=== PATIENT | male | born 1970 | race African-American/Black ===

== ENCOUNTER 2019-09-14 01:55 | Inpatient (IN) | payer OTHER, SELFPAY ==
[~2019-09-14] VITALS: Ht 182.9 cm; Wt 90.7 kg
[2019-09-14 01:55] VITALS: BP 149/93
--- NOTE | 2019-09-14 01:56 | NUR ---
PT FLOR BLS. TAKEN TO BED 6
--- NOTE | 2019-09-14 02:05 | NUR ---
49 Y/O MALE BIB [employer] [employer] C/O SI . PT WAS FOUND WANDERING SIDE OF ROAD PT STATES THE VOICES TOLD HIM TO HURT HIMSELF. PT STATES HE WANTED TO JUMP IN FRONT OF THE [place]. PT STATES HE HAD ALCOHOL AND METH TODAY BUT UNABLE TO OBTAIN HOW MUCH AND WHEN. PT HAS VISUAL AND VOCAL HALLUCINATIONS. PT STATES HE HAS NOT BEEN TAKING HIS MEDICATIONS FOR THE PAST 3 -4 DAYS. PT IS COOPERATIVE AND ABLE TO FOLLOW ALL COMMANDS. PT BREATHING EVEN AND UNLABORED. VSS. PT RESTING IN BED , LOCKED AND IN LOWEST POSITION, HOB ELEVATED , SIDE RAIL X 2 FOR PT SAFET, SI PRECAUTIONS IN PLACE FOR PT SAFETY. PMH: SCHIZOPHRENIA, DEPRESSION, ANXIETY RX: RISPERDONE AX: MOTRIN
[2019-09-14 02:41] LABS: BASOPHILS % (AUTO) 0.9 % (0.0-2.0); EOSINOPHILS # (AUTO) 0.2 K/uL (0-0.4); EOSINOPHILS % (AUTO) 4.5 % (0.0-4.0); HEMATOCRIT 41.1 % (36-52); HEMOGLOBIN 13.8 g/dL (12.0-18.0); LYMPHOCYTES # (AUTO) 2.5 K/uL (2.0-11.5); LYMPHOCYTES % (AUTO) 50.5 % (20.5-51.1); MEAN CORPUSCULAR HEMOGLOBIN 32 pg (27-31); MEAN CORPUSCULAR HGB CONC 34 g/dL (33-37); MEAN CORPUSCULAR VOLUME 95.3 fL (80-94); MONOCYTES # (AUTO) 0.3 K/uL (0.8-1.0); MONOCYTES % (AUTO) 6.5 % (1.7-9.3); NEUTROPHILS # (AUTO) 1.8 K/uL (1.8-7.7); NEUTROPHILS % (AUTO) 37.6 % (42.2-75.2); PLATELET COUNT (AUTO) 204 K/uL (140-450); RED BLOOD CELL COUNT(AUTO) 4.31 MIL/uL (4.20-6.10); WHITE BLOOD COUNT (AUTO) 4.9 K/uL (4.8-10.8)
[2019-09-14 03:00] LABS: ALBUMIN 3.6 g/dL (3.4-5.0); ANION GAP 16.6 (8-16); ASPARTATE AMINOTRANSFERASE 58 U/L (15-37); CHLORIDE 103 mmol/L (98-107); CREATININE 1.1 mg/dL (0.6-1.3); GFR ARICAN-AMERICAN 92 mL/min (>90); GLUCOSE 113 mg/dL (74-106); POTASSIUM 3.6 mmol/L (3.5-5.1); SODIUM SERUM 141 mmol/L (136-145); TOTAL BILIRUBIN 0.2 mg/dL (0.0-1.0); UREA NITROGEN, BLOOD 9 mg/dL (7-18)
--- NOTE | 2019-09-14 03:00 | NUR ---
PT SLEEPING IN BED , LOCKED AND IN LOWEST POSITION, HOB ELEVATED , SIDE RAIL X2 AND SI PRECAUTIONS IN PLACE FOR PT SAFETY.
[2019-09-14 03:01] LABS: ACETAMINOPHEN < 0.5 ug/ml (10-30); SALICYLATE < 2.8 mg/dL (2.8-20.0)
[2019-09-14 03:17] LABS: APPEARANCE,URINE CLEAR (CLEAR); BILIRUBIN,URINE NEGATIVE (NEGATIVE); BLOOD, URINE NEGATIVE (NEGATIVE); COLOR,URINE YELLOW (YELLOW); LEUKOCYTE ESTERASE ,URINE NEGATIVE (NEGATIVE); NITRITE, URINE NEGATIVE (NEGATIVE); PH,URINE 5.5 (5.0-9.0); UGLUCOSE NEGATIVE (NEGATIVE)
--- NOTE | 2019-09-14 03:23 | NUR ---
PT PROVIDED BLANKET FOR COMFORT.
[2019-09-14 03:28] LABS: BARBITURATE, URINE NEGATIVE ng/ml (NEG <=200); BENZODIAZEPINE, URINE NEGATIVE ng/mL (NEG <=200); CANNABINOID, URINE NEGATIVE ng/mL (NEG <=50); COCAINE, URINE NEGATIVE ng/mL (NEG <=300); OPIATE, URINE NEGATIVE ng/mL (NEG <=2000); PHENCYCLIDINE SCREEN,URINE NEGATIVE ng/mL (NEG <=25)
--- NOTE | 2019-09-14 04:25 | NUR ---
pt sleeping in bed , bed locked and in lowest position, hob elevated , side rails x [address] for pt safety.
--- NOTE | 2019-09-14 04:42 | NUR ---
[facility] awar of patient. Will assist with placement if and when needed and requested
--- NOTE | 2019-09-14 05:08 | NUR ---
BLOOD ALCOHOL REDRAWN AND TAKEN TO LAB.
--- NOTE | 2019-09-14 06:15 | NUR ---
pt sleeping in bed , locked and in lowest position, hob elevated , side rails x [address] for pt safety. Pt arousable by verbal stimulation.
--- NOTE | 2019-09-14 07:12 | NUR ---
REPORT GIVEN TO TIA AGUSTIN FOR CONTINUATION OF CARE.
--- NOTE | 2019-09-14 07:15 | NUR ---
RECEIVED REPORT FROM TIA HATCH , PT SLEEPING IN BED SIDE RAILS UP X1 AND LOCK.
--- NOTE | 2019-09-14 08:38 | NUR ---
pt comfortable in bed eating breakfast with no complaint . side rails up x1 and lock.
--- NOTE | 2019-09-14 09:07 | NUR ---
Lab at bedside for blood draw.
--- NOTE | 2019-09-14 09:09 | NUR ---
labs at bedside.
--- NOTE | 2019-09-14 09:38 | NUR ---
Per Dr. Boothe, medically clear for psychiatric transfer.
--- NOTE | 2019-09-14 10:58 | NUR ---
pt comfortable in bed sleeping .side rails up x1 and lock.
--- NOTE | 2019-09-14 12:19 | NUR ---
PT COMFORTABLE IN BED EATING LUNCH.
--- NOTE | 2019-09-14 12:33 | NUR ---
[facility] has received referral and has verified benefits. referral has been forwarded to the following facilities for review and potential placement: [facility]
[2019-09-14] MEDS ORDERED: LORazepam 2 MG/ML VIAL IM ONE (12:55)
--- NOTE | 2019-09-14 13:16 | NUR ---
PT SLEEPING COMFORTABLE IN BED SIDE RAILS UP X1 AND LOCK.
--- NOTE | 2019-09-14 15:55 | NUR ---
PT RESTING IN BED, SIDE RAIL X2
[2019-09-14] MEDS ORDERED: ALBUTEROL 0.083% 2.5 MG/3 ML NEBU INH PRN (18:00)
[2019-09-14] MEDS ORDERED: ONDANSETRON 4 MG/2 ML VIAL IVP PRN (18:00)
[2019-09-14] MEDS ORDERED: ACETAMINOPHEN 325 MG TAB PO PRN (18:00)
--- NOTE | 2019-09-14 19:11 | NUR ---
REPORT GIVEN TO AYLEEN WEBER FOR CONTINUITY OF CARE
--- NOTE | 2019-09-14 19:21 | NUR ---
PT SLEEPING IN BED RESTING, VISIBLE CHEST RISE AND FALL. AROUSABLE TO VOICE. NO FURTHER NEEDS AT THIS TIME. BED LOWEST AND LOCKED, RAILS X 2
--- NOTE | 2019-09-14 20:02 | NUR ---
Patient will be admitted to care of DR KOHLI. Admited to TELE. Will go to room 128A. Belongings list completed. Report to VALERIE WEBER .
[2019-09-14 20:05] VITALS: BP 130/86
--- NOTE | 2019-09-14 20:05 | NUR ---
PATIENT ARRIVED FROM ER VIA WHEELCHAIR. ABLE TO AMBULATE TO [facility] BED WITH STEADY GAIT. NO DISTRESS NOTED. DENIES ANY PAIN. RESPIRATIONS EVEN, UNLABORED, ON ROOM AIR. AAOX3, CALM, COOPERATIVE, SKIN COLOR APPROPRIATE TO ETHNICITY, WARM TO TOUCH. SKIN INTACT. IV SITE INTACT, PATENT, AND ON SALINE LOCK. REVIEWED PLAN OF CARE WITH PATIENT. SITTER AT BEDSIDE. SAFETY MEASURES IN PLACE. WILL CONTINUE TO MONITOR.
--- NOTE | 2019-09-14 20:55 | NUR ---
CALLED DR. ROGERS AND INFORMED HIM OF PATIENT FIRST COVID SWAB NEGATIVE, PER DR. ROGERS, PATIENT DOES NOT NEED A SECOND COVID SWAB.
--- NOTE | 2019-09-14 23:40 | NUR ---
PATIENT LYING DOWN IN BED SLEEPING, AROUSABLE BY VOICE. NO DISTRESS NOTED. WILL CONTINUE TO MONITOR.
[2019-09-15] VITALS: BP 125/80
[2019-09-15] MEDS: LORazepam 2 MG/ML VIAL IVP PRN ×3 (02:24→21:11)
--- NOTE | 2019-09-15 02:25 | NUR ---
PATIENT IS HAVING ANXIETY, PRN ATIVAN GIVEN PER ORDER. WILL CONTINUE TO MONITOR.
[2019-09-15 04:00] VITALS: BP 119/86
--- NOTE | 2019-09-15 04:53 | NUR ---
S/W patients nurse Steven, stating that 5150 was not signed or dated. Will refax a new copy with the date and time once it is filled out. Will endorse to incoming shift to monitor and seek further placement during their shift
--- NOTE | 2019-09-15 05:45 | NUR ---
LUANA FROM [facility] CALL [facility] CALLED AND SAID THAT THE 5150 HOLD FOR PATIENT REQUIRED DATE AND TIME ON THE BACK. CALLED [facility] AND THEY TOLD US THAT THE OFFICER WHO SIGNED THE 5150 HOLD [facility] AND THAT WE CAN JUST PUT THE SAME DATE AND TIME THAT THE OFFICER PUT IN THE FRONT PAGE. WROTE IN DATE AND TIME OF HOLD PER DISPATCH OF [facility]INI[facility] AND REFAXED OVER TO [facility].
[2019-09-15 06:44] LABS: BASOPHILS % (AUTO) 0.3 % (0.0-2.0); EOSINOPHILS # (AUTO) 0.2 K/uL (0-0.4); EOSINOPHILS % (AUTO) 3.9 % (0.0-4.0); HEMATOCRIT 41.4 % (36-52); HEMOGLOBIN 13.9 g/dL (12.0-18.0); LYMPHOCYTES # (AUTO) 1.7 K/uL (2.0-11.5); LYMPHOCYTES % (AUTO) 31.3 % (20.5-51.1); MEAN CORPUSCULAR HEMOGLOBIN 32 pg (27-31); MEAN CORPUSCULAR HGB CONC 34 g/dL (33-37); MEAN CORPUSCULAR VOLUME 95.5 fL (80-94); MONOCYTES # (AUTO) 0.5 K/uL (0.8-1.0); NEUTROPHILS # (AUTO) 3.1 K/uL (1.8-7.7); NEUTROPHILS % (AUTO) 55.5 % (42.2-75.2); PLATELET COUNT (AUTO) 170 K/uL (140-450); RED BLOOD CELL COUNT(AUTO) 4.34 MIL/uL (4.20-6.10); RED CELL DISTRIBUTION WIDTH 14.9 % (11.6-13.7); WHITE BLOOD COUNT (AUTO) 5.6 K/uL (4.8-10.8)
--- NOTE | 2019-09-15 07:00 | NUR ---
RECEIVED REPORT FROM RELATIONS COORDINATOR NURSE VALERIE-RN. PT RESTING IN BED, AOX4, ON ROOM AIR WITH LEFT AC #18G/SL. 1:1 SITTER FOR 5150, SI HEARING VOICES TO HURT HIMSELF. DISCUSSED PLAN OF CARE AND PT VERBALIZED UNDERSTANDING. CALL LIGHT WITHIN REACH. NO S/S OF RESPIRATORY DISTRESS OR DISCOMFORT NOTED AT THIS TIME. WILL CONTINUE TO MONITOR.
--- NOTE | 2019-09-15 08:00 | NUR ---
PT EATING BREAKFAST IN BED. CALL LIGHT WITHIN REACH. NO S/S OF RESPIRATORY DISTRESS OR DISCOMFORT NOTED AT THIS TIME. WILL CONTINUE TO MONITOR.
[2019-09-15 08:01] VITALS: BP 103/74
[2019-09-15 08:09] LABS: MAGNESIUM 1.9 mg/dL (1.8-2.4); PHOSPHORUS 3.2 mg/dL (2.5-4.9)
[2019-09-15 08:33] LABS: ANION GAP 13.3 (8-16); CARBON DIOXIDE 26.6 mmol/L (21-32); CREATININE 1.1 mg/dL (0.6-1.3); POTASSIUM 3.9 mmol/L (3.5-5.1)
--- NOTE | 2019-09-15 09:59 | NUR ---
PT C/O ANXIETY AND HEARING VOICES TELLING HIM TO HURT HIMSELF. PT CONTINUES TO FEEL SUICIDAL AND HAS A PLAN TO JUMP IN FRONT OF A MOVING VEHICLE. ATIVAN WAS GIVEN AND TOLERATED WELL. CALL LIGHT WITHIN REACH. NO S/S OF RESPIRATORY DISTRESS OR DISCOMFORT NOTED AT THIS TIME. WILL CONTINUE TO MONITOR.
[2019-09-15 12:00] VITALS: BP 111/68
--- NOTE | 2019-09-15 12:00 | NUR ---
VITAL SIGNS TAKEN AND TOLERATED WELL. NO S/S OF RESPIRATORY DISTRESS OR DISCOMFORT NOTED AT THIS TIME. WILL CONTINUE TO MONITOR.
--- NOTE | 2019-09-15 14:00 | NUR ---
PT SLEEPING IN BED. NO S/S OF RESPIRATORY DISTRESS OR DISCOMFORT NOTED AT THIS TIME. WILL CONTINUE TO MONITOR.
--- NOTE | 2019-09-15 14:34 | NUR ---
there are still no placement updates at this time will cont to monitor and assist in placement
--- NOTE | 2019-09-15 19:30 | NUR ---
REPORT GIVEN BY YAZAN WEBER . PT IS LYING ON THE BED AND AWAKE. NO S/S OF DISTRESS ,NO S/S OF PAIN. PT C/O ANXIETY AND HEARING VOICES TELLING HIM TO HURT HIMSELF. PT CONTINUES TO FEEL SUICIDAL AND HAS A PLAN TO JUMP IN FRONT OF A MOVING VEHICLE. ASK PT TO RELAX AND TAKE ADDED BREATHING. PT SAID OK. PT DENIAL ANY PAIN AT THIS TIME. PT CONTINUE ON 1:1 SITTER. SKIN WARM TO TOUCH. SALINE LOCK TO LEFT AC NO 20. PT WALKS TO RESTROOM.CONTINUE TO MONITOR CLOSELY.
[2019-09-15 20:00] VITALS: BP 110/70
[2019-09-15] MEDS: risperiDONE 1 MG TAB PO SCH (21:10)
--- NOTE | 2019-09-15 21:15 | NUR ---
PT C/O CANNOT SLEEPING,ANXIETY AND HEARING VOICES TELLING HIM TO HURT HIMSELF. PT ASK FOR ATIVAN. ATIVAN WAS GIVEN ORDER AND TOLERATED WELL. CALL LIGHT WITHIN REACH
--- NOTE | 2019-09-15 23:16 | NUR ---
PT SLEEPING WELL
[2019-09-16] VITALS: BP 101/70
--- NOTE | 2019-09-16 02:02 | NUR ---
PT SLEPT WELL. CONT ON 1:1 SITTER
[2019-09-16 04:00] VITALS: BP 101/70
--- NOTE | 2019-09-16 04:00 | NUR ---
PT STILL SLEEPING. NO EPISODE OF C/O HEARING ANY VOICE TO HARM HIM SELF AT THIS TIME.
--- NOTE | 2019-09-16 06:33 | NUR ---
PT STABLE AND SLEEPING WELL.
[2019-09-16] MEDS: LORazepam 2 MG/ML VIAL IVP PRN ×2 (06:47→16:15)
--- NOTE | 2019-09-16 06:47 | NUR ---
PT SAYING HE HEARING VOICES AGAIN AND TELL HIM JUMP OUT OF WINDOW AND HURT HIM SELF. HE REQUESTING MEDICATION. ATIVAN GIVEN PRN ORDER.
[2019-09-16 07:22] LABS: BASOPHILS % (AUTO) 0.6 % (0.0-2.0); EOSINOPHILS # (AUTO) 0.3 K/uL (0-0.4); HEMATOCRIT 44.1 % (36-52); HEMOGLOBIN 14.7 g/dL (12.0-18.0); LYMPHOCYTES # (AUTO) 1.7 K/uL (2.0-11.5); LYMPHOCYTES % (AUTO) 35.5 % (20.5-51.1); MEAN CORPUSCULAR HEMOGLOBIN 32 pg (27-31); MEAN CORPUSCULAR HGB CONC 34 g/dL (33-37); MEAN CORPUSCULAR VOLUME 95.8 fL (80-94); MONOCYTES # (AUTO) 0.4 K/uL (0.8-1.0); MONOCYTES % (AUTO) 8.3 % (1.7-9.3); NEUTROPHILS # (AUTO) 2.3 K/uL (1.8-7.7); NEUTROPHILS % (AUTO) 49.6 % (42.2-75.2); PLATELET COUNT (AUTO) 172 K/uL (140-450); RED CELL DISTRIBUTION WIDTH 14.8 % (11.6-13.7); WHITE BLOOD COUNT (AUTO) 4.7 K/uL (4.8-10.8)
--- NOTE | 2019-09-16 07:28 | NUR ---
REPORT GIVEN TO AM SHIFT RN. PT IS STABLE NO DISTRESS, NO SOB AT THIS TIME.
--- NOTE | 2019-09-16 07:30 | NUR ---
RECEIVED IN BED SLEEPING. NO SOB NOTED. NO C/O PAIN AT THIS TIME. IV TO LAC PATENT AND INTACT. CHEST CLEAR. ABDOMEN SOFT, BOWEL SOUNDS PRESENT. NO EDEMA NOTED. WITH SITTER AT THE BEDSIDE. WILL CONTINUE TO MONITOR PT FOR SUICIDAL IDEATION.
[2019-09-16 07:51] LABS: ANION GAP 12.4 (8-16); CARBON DIOXIDE 27.6 mmol/L (21-32); CREATININE 0.9 mg/dL (0.6-1.3); MAGNESIUM 2.1 mg/dL (1.8-2.4); PHOSPHORUS 3.9 mg/dL (2.5-4.9)
[2019-09-16 08:00] VITALS: BP 118/81
--- NOTE | 2019-09-16 08:05 | NUR ---
PT WOKE UP, AAOX4. DENIES ANY SUICIDAL IDEATION AT THIS TIME. PT ABLE TO CONSUMED 100% OF BREAKFAST SERVED.
[2019-09-16] MEDS: risperiDONE 1 MG TAB PO SCH ×2 (09:00→20:33)
--- NOTE | 2019-09-16 09:00 | NUR ---
PATIENT HAS BEEN SCREENED AND CATEGORIZED LOW NUTRITION RISK. PATIENT WILL BE SEEN WITHIN 7 DAYS OF ADMISSION. 09/21/[address]
--- NOTE | 2019-09-16 09:35 | NUR ---
SCHEDULED RISPERDAL PO NOT GIVEN, PT IS SOUND ASLEEP AFTER ATIVAN PRN WAS GIVEN AROUND 6AM. WILL CONTINUE TO MONITOR PT.
--- NOTE | 2019-09-16 12:57 | NUR ---
Spoke to Ely / RN at the facility. There are no beds at this time, currently monitoring for possible discharges. Will keep facility informed of any updates
--- NOTE | 2019-09-16 14:00 | NUR ---
PT SEEN BY DR. MCKEON WITH NEW ORDERS FOR MEDICATIONS.
[2019-09-16 16:00] VITALS: BP 110/80
--- NOTE | 2019-09-16 16:00 | NUR ---
PT PULLOUT HIS IV ACCIDENTALLY, ESTABLISHED A NEW IV LINE ON RT HAND WITH GAUGE 24.
--- NOTE | 2019-09-16 16:15 | NUR ---
PT C/O ANXIETY. ADMINISTERED ATIVAN IV PRN. WILL CONTINUE TO MONITOR PT.
--- NOTE | 2019-09-16 19:00 | NUR ---
PT RESTING. NO SOB NOTED. NO COMPLAINTS MADE. ENDORSED TO NEXT SHIFT FOR CONTINUITY OF CARE.
--- NOTE | 2019-09-16 19:30 | NUR ---
RECEIVED PT IN STABLE CONDITION FROM AM NURSE. AWAKE,ALERT AND ORIENTED X4, MED SURG PT. AMBULATORY. WITH NO C/O ANY DISCOMFORT NOR PAIN NOTED. HL ON THE RT HAND G#22. CLEAR AND PATENT. SAFETY MEASURES IN PLACED. 1;1 SITTER AT BEDSIDE. WILL CONTINUE TO MONITOR.
--- NOTE | 2019-09-16 20:35 | NUR ---
ALL NIGHT MEDS GIVEN. TOLERATED WELL. WILL CONTINUE TO MONITOR.
[2019-09-16] MEDS ORDERED: traZODone 50 MG TAB PO SCH (21:00)
--- NOTE | 2019-09-16 22:00 | NUR ---
CHECKED O PT. ASLEEP. NO S/S OF ANY DISCOMFORT NOTED.
[2019-09-17] VITALS: BP 112/80
--- NOTE | 2019-09-17 00:29 | NUR ---
Notified [facility] floor caretaker resort, At this time, will still look for placement.
--- NOTE | 2019-09-17 00:30 | NUR ---
PT ASLEEP. NO S/S OF ANY DISCOMFORT NOTED.
--- NOTE | 2019-09-17 02:00 | NUR ---
PT IS ASLEEP . NO S/S OF ANY DISCOMFORT . 1;1 SITTER IN ATTENDANCE.
--- NOTE | 2019-09-17 06:00 | NUR ---
PT REFUSED THE IV ACCESS. PT IV ACCESS PULLED OUT. WILL ENDORSE TO AM NURSE.
[2019-09-17 07:28] LABS: BASOPHILS % (AUTO) 0.8 % (0.0-2.0); EOSINOPHILS # (AUTO) 0.3 K/uL (0-0.4); HEMATOCRIT 42.5 % (36-52); HEMOGLOBIN 14.3 g/dL (12.0-18.0); LYMPHOCYTES # (AUTO) 2.1 K/uL (2.0-11.5); LYMPHOCYTES % (AUTO) 37.6 % (20.5-51.1); MEAN CORPUSCULAR HEMOGLOBIN 32 pg (27-31); MEAN CORPUSCULAR HGB CONC 34 g/dL (33-37); MEAN CORPUSCULAR VOLUME 95.7 fL (80-94); MONOCYTES # (AUTO) 0.5 K/uL (0.8-1.0); MONOCYTES % (AUTO) 8.6 % (1.7-9.3); NEUTROPHILS # (AUTO) 2.7 K/uL (1.8-7.7); PLATELET COUNT (AUTO) 166 K/uL (140-450); RED BLOOD CELL COUNT(AUTO) 4.44 MIL/uL (4.20-6.10); RED CELL DISTRIBUTION WIDTH 14.9 % (11.6-13.7); WHITE BLOOD COUNT (AUTO) 5.5 K/uL (4.8-10.8)
[2019-09-17 07:30] LABS: ANION GAP 13.8 (8-16); CARBON DIOXIDE 25.3 mmol/L (21-32); POTASSIUM 4.1 mmol/L (3.5-5.1)
--- NOTE | 2019-09-17 07:30 | NUR ---
ENDORSED PT IN STABLE CONDITION TO AM NURSE.
[2019-09-17 07:40] LABS: MAGNESIUM 1.9 mg/dL (1.8-2.4); PHOSPHORUS 4.1 mg/dL (2.5-4.9)
--- NOTE | 2019-09-17 08:09 | NUR ---
[facility] still aware of patient and placement. Patients 5150 has 09/17/2019 @02:30. Will call facility for update
[2019-09-17] MEDS: risperiDONE 1 MG TAB PO SCH (09:00)
[2019-09-17 09:13] VITALS: BP 111/69
--- NOTE | 2019-09-17 10:08 | NUR ---
PATIENT IS RESTING COMFORTABLY IN BED. HE IS AAO AND SHOWS NO S/S OF ACUTE DISTRESS NOTED. SKIN INTACT. NO IV ACCESS NOTED. HE FOLLOWS COMMANDS. MEDICATIONS WERE GIVEN AND PATIENT WAS ABLE TO SWALLOW WITHOUT DIFFICULTY. 1:1 SITTER IS WITH PATIENT. SUICIDE PRECAUTIONS IN PLACE. PATIENT ON A 51/50 HOLD.
--- NOTE | 2019-09-17 12:18 | NUR ---
PATIENT RESTING IN BED COMFORTABLY.
--- NOTE | 2019-09-17 12:45 | NUR ---
LOADING MANAGER NOTE: Patient's Orientation Person Situation Place Time Information Provided By PATIENT Installer Apprentice, Realtionship and Phone Number LUCI CHIU [phone] Healthcare Power of Group Burner Machine No Does Patient Have a POLST No Identifying Problems Mental Health Homelessness/Housing Substance Abuse Is A Social Work Consult Needed No Mandate Report Filed No Explanation Of Identifying Problems PATIENT IS A 49-YEAR-OLD MALE ADMITTED FOR 5150, S/I. PATIENT HAS PMHX OF SCHIZOPHRENIA. SW MET WITH PATIENT AT BEDSIDE TO VERIFY DEMOGRAPHICS. PATIENT STATED THAT HE TYPICALLY STAYS IN [place] BUT WAS INTERESTED IN ROOM AND BOARD SERVICES. SW PROVIDED ROOM AND BOARD RESOURCES. PATIENT REFUSED MENTAL HEALTH RESOURCES AND HOMELESS RESOURCES. PATIENT STATED THAT HE IS STILL EXPERIENCING S/I, AH/VH. Admitted From [facility] Pre-Admission Level Of Functioning Status Independent/Ambulatory Prior Resources/Services Used In Last 12 Months No Prior Resources Used Prior DME No Prior DME Used Living Situation Homeless Rents A Room Other Living Situation/Comment PATIENT STATED THAT HE LIVES IN [facility]. Factors/Needs Psych Placement/Referral Community Resources Explanation And Or Other Factors Affecting/Possible DC Needs PATIENT WAS INTERESTED IN ROOM AND BOARD RESOURCES. Pt/Rep Participated In Discharge Plan Yes Discharge Plan Comments TENTATIVE DISCHARGE PLAN IS FOR PATIENT TO BE DISCHARGED TO PSYCHIATRIC FACILITY PENDING PSYCHIATRIC CONSULT. DC Plan Status Initiated Addendum: 09/17/19 at 1343 by Joo Steve SS JUNE CONTACTED TIA BUTTS REGARDING PSYCHIATRIC CONSULT. BECKIE STATED SHE WOULD CONTACT DR. MCKEON AND UPDATE JUNE. JUNE ALSO CONTACTED [place] [facility]OM AND BOARD [phone] TO ARRANGE ROOM AND BOARD IF PATIENT IS CLEARED BY PSYCHIATRIST. PATIENT IS AGREEABLE. JUNE PROVIDED PATRICIA PATIENT'S PHONE NUMBER TO DISCUSS ROOM AND BOARD ARRANGEMENTS. Addendum: 09/17/19 at 1524 by Joo Steve SS JUNE SPOKE WITH TIA BUTTS. BECKIE STATED SHE WOULD PROVIDE PATIENT A PHONE TO MAKE ARRANGEMENTS WITH ROOM AND BOARD PENDING PSYCH CLEARANCE. SW WILL REMAIN AVAILABLE IF FURTHER SOCIAL ISSUES ARISE.
--- NOTE | 2019-09-17 13:06 | NUR ---
PER SW notes, pending re-evaluation for psych. 5150 has . Will monitor documentation
--- NOTE | 2019-09-17 16:15 | NUR ---
PATIENT WANTS TO LEAVE AMA DR. GLASER AND DR. MCKEON ARE AWARE. PATIENT SIGNED AMA FORM. SECURITY BROUGHT OVER ALL BELONGINGS.
--- NOTE | 2019-09-17 16:20 | NUR ---
PATIENT WAS PROVIDED WITH PATRICIA'S ROOM AND BOARD NUMBER AT [phone]. HE VERBALIZED UNDERSTANDING OF LEAVING AMA WITHOUT SEEING THE DOCTOR HE INSISTED ON LEAVING. AMB OFF THE UNIT WITH STEADY GAIT.
== END 2019-09-17 16:20 | disposition left against medical advice (07) | DRG 770 ==
LOC: MED 01:55 → EEVIPCON 01:55 → MMU 18:04 → MTU 20:58
PROVIDERS: ADMIT Internal Medicine; ATTEND Internal Medicine
DX: F15.10 Other stimulant abuse, uncomplicated (principal); R45.851 Suicidal ideations; F10.129 Alcohol abuse with intoxication, unspecified; F20.9 Schizophrenia, unspecified; F17.200 Nicotine dependence, unspecified, uncomplicated; Z20.828 Contact with and (suspected) exposure to other viral communicable diseases; Z81.8 Family history of other mental and behavioral disorders; Z88.6 Allergy status to analgesic agent; Z59.0 Homelessness; Z79.899 Other long term (current) drug therapy
CPT/HCPCS: 36415; 71045; 80048; 80053; 80305; 81003; 83735; 84100; 84484; 85025; 87081; 93005; 96372; 99285; G0480; G0482; J2060; Q0092; U0003-CS